=== PATIENT | male | born 1975 | race African-American/Black ===

== ENCOUNTER → 2016-08-30 | Outpatient (CLI) | payer MEDICAID, OTHER ==
[~2016-08-30] MED LIST: CARI350T21 PO; HYDR-2595 PO
== END | disposition home or self-care (01) ==
LOC: Rad HDHVI 11:43
PROVIDERS: ATTEND Internal Medicine Cardiovascular Disease
DX: I10 Essential (primary) hypertension (principal)
CPT/HCPCS: 93306

== ENCOUNTER → 2016-09-05 | Outpatient (CLI) | payer MEDICAID ==
[~2016-09-05] VITALS: Ht 160 cm; Wt 65.8 kg
== END | disposition home or self-care (01) ==
LOC: Rad HDHVI 09:00
PROVIDERS: ATTEND Internal Medicine Cardiovascular Disease
DX: Z13.0 Encounter for screening for diseases of the blood and blood-forming organs and certain disorders involving the immune mechanism (principal); I10 Essential (primary) hypertension; R07.9 Chest pain, unspecified; R06.02 Shortness of breath
CPT/HCPCS: 78452; 93017; 96374; A9500

== ENCOUNTER 2016-11-06 07:18 | Emergency (ER) | payer MEDICAID ==
[~2016-11-06] VITALS: Ht 160 cm; Wt 61.2 kg
[2016-11-06 07:40] VITALS: BP 124/75
[2016-11-06] MEDS ORDERED: cefTRIAXone SODIUM 250 MG VL IM ONE (08:00)
== END 2016-11-06 08:09 | disposition home or self-care (01) ==
LOC: ER 07:18
DX: A64 Unspecified sexually transmitted disease (principal); I10 Essential (primary) hypertension
CPT/HCPCS: 81002; 96372; 99283; J0696

== ENCOUNTER 2017-07-15 08:35 | Emergency (ER) | payer MEDICAID ==
[~2017-07-15] VITALS: Ht 160 cm; Wt 9.8 kg
[~2017-07-15 08:35] MED LIST changes: +CARI-316 PO; -CARI350T21 PO
[2017-07-15 08:56] VITALS: BP 134/88
[2017-07-15 09:36] LABS: Basophils # (auto) 0 uL; Basophils % (auto) 0.7 % (0.0-2.0); Eosinophils # (auto) 0.2 uL; Eosinophils % (auto) 5.5 % (0.0-7.0); Hematocrit 46.1 % (41.0-53.0); Hemoglobin 15.5 g/dL (13.5-17.5); Lymphocytes # (auto) 1.5 uL; Lymphocytes % (auto) 38.4 % (10.0-50.0); Mean Corpuscular Hemoglobin 30.3 pg (28.0-32.0); Mean Corpuscular Hgb Conc. 33.6 g/dL (32.0-36.0); Mean Corpuscular Volume 90.2 fL (80.0-100.0); Monocytes # (auto) 0.4 uL; Monocytes % (auto) 11.2 % (0.0-12.0); Neutrophils # (auto) 1.7 uL; Neutrophils % (auto) 44.2 % (37.0-80.0); Nucleated Red Blood Cells % 0.1 %; Platelet Count (auto) 182 10^3/uL (140-450); Red Blood Cells 5.11 10^6/uL (4.5-5.90); Red Cell Distribution Width 14.7 % (11.8-14.3); White Blood Cell 3.8 10^3/uL (4.4-10.8)
[2017-07-15 09:51] LABS: BUN/Creatinine Ratio 6.5; Potassium 3.2 mmol/L (3.5-5.1)
[2017-07-15 09:55] LABS: Bilirubin, Total 1.1 mg/dL (0.2-1.0); Total Protein 7.2 g/dL (6.4-8.2)
[2017-07-15] MEDS ORDERED: POTASSIUM CHL 10% (20 MEQ/15ML) 15ml ORAL SOLN PO ONE (10:15)
== END 2017-07-15 10:22 | disposition home or self-care (01) ==
LOC: ER 08:35
DX: E87.6 Hypokalemia (principal); R10.31 Right lower quadrant pain; K59.00 Constipation, unspecified; I10 Essential (primary) hypertension; Z79.891 Long term (current) use of opiate analgesic; Z79.899 Other long term (current) drug therapy
CPT/HCPCS: 36415; 74176; 80053; 85025

== ENCOUNTER 2017-08-30 07:53 | Emergency (ER) | payer MEDICAID ==
[~2017-08-30] VITALS: Ht 160 cm; Wt 63.5 kg
[2017-08-30 08:40] VITALS: BP 124/75
== END 2017-08-30 09:27 | disposition home or self-care (01) ==
LOC: ER 07:53
DX: N39.0 Urinary tract infection, site not specified (principal); I10 Essential (primary) hypertension

== ENCOUNTER 2017-09-06 07:55 | Emergency (ER) | payer MEDICAID ==
[~2017-09-06] VITALS: Ht 160 cm; Wt 64.0 kg
[2017-09-06 07:57] VITALS: BP 135/83
== END 2017-09-06 09:00 | disposition home or self-care (01) ==
LOC: ER 07:55
DX: R30.0 Dysuria (principal); I10 Essential (primary) hypertension; Z79.899 Other long term (current) drug therapy